=== PATIENT | male | born 1950 | race Caucasian/White ===

== ENCOUNTER → 2016-07-03 | Outpatient (CLI) | payer OTHER ==
[~2016-07-03] MED LIST: ASPI-496 PO; ATOR40TA PO; CHOL10003 PO; CLOP75TA22 PO; DOCU-30 PO; HYDR-3307 PO; KRIL500C PO; LACT1CAP37 PO; LISI1TAB7 PO; METO25TA35 PO; MORP15TA39 PO; MULT-516 PO; OMEP20TA62 PO; VITA1TAB85 PO
== END | disposition home or self-care (01) ==
LOC: CFH 09:44
PROVIDERS: ATTEND Internal Medicine Cardiovascular Disease
DX: Z95.1 Presence of aortocoronary bypass graft (principal)
CPT/HCPCS: 93306